=== PATIENT | male | born 1955 | race American Indian/Alaskan Native ===

== ENCOUNTER 2021-01-14 10:56 | Outpatient (CLI) | payer MEDICARE ==
--- NOTE | 2021-01-14 12:39 | XRay Report ---
BILATERAL KNEES 5 VIEWS INDICATION / CLINICAL INFORMATION: BILATERAL KNEE PAIN COMPARISON: None available. FINDINGS: BONES and JOINT(S): No acute fracture or subluxation. Moderate osteoarthritis is seen along the media l compartments without other significant degenerative changes. SOFT TISSUES: No significant abnormality. ADDITIONAL FINDINGS: None. IMPRESSION: Moderate osteoarthritis of the knees. Signer Name: Demetrius Langston MD Signed: 01/14/2021 12:34 PM Workstation Name: [employer]
== END 2021-01-14 10:57 | disposition home or self-care (01) ==
LOC: XRAY 10:56
PROVIDERS: ATTEND Internal Medicine
DX: M17.0 Bilateral primary osteoarthritis of knee (principal)